=== PATIENT | male | born 1980 | race Caucasian/White ===

== ENCOUNTER 2024-04-27 10:49 | Emergency (ER) | payer OTHER, SELFPAY ==
[2024-04-27 10:50] VITALS: BP 141/101; PULSE 92; RESP 18; TEMP 37; O2SAT 99; BMI 35.2
--- NOTE | 2024-04-27 11:12 | EDS_ITS ---
HPI <MANDEEP Santos - Last Filed: 04/27/24 20:48> History of Present Illness Chief Complaint: Upper Extremity Injury Narrative Narrative: 44-year-old male states he is had pain in his left trapezius and left elbow for the last week. He was seen at another facility and told he has tennis elbow and was given a splint which he wears at work and is helping the elbow. He states his trapezius area still hurts after working all day and when lying down at night. He has tried ibuprofen without much relief. He has no pain in the shoulder joint or radiating down the arm. No weakness or paresthesias. There was no fall or direct injury. PFS <MANDEEP Santos - Last Filed: 04/27/24 20:48> [facility] Medical History unable to obtain Home Medications ?Medication ?Instructions ?Recorded ?Last Taken ?Type cyclobenzaprine 10 mg tablet 10 mg PO TID PRN Muscle S pasm #20 04/27/24 Unknown Rx TABLETS Social History Smoking Status: Current every day smoker tobacco type: cigarettes ROS <MANDEEP Santos - Last Filed: 04/27/24 20:48> ROS ED ROS Narrative CVS: Negative for chest pain chest painchest pain. Respiratory: Negative for shortness of breath. Neuro: Negative for motor/sensory dysfunction. EXAM <MANDEEP Santos Last Filed: 04/27/24 20:48> Physical Exam Narrative Exam Narrative: CONST: Patient sitting in no acute distress. EYES: Normal inspection. NECK: Normal inspection. No cervical spine tenderness or step-offs. RESP: No respiratory distress, CTAB. CVS: Regular rate and rhythm, no murmur, no gallop. Back: Normal inspection, no thoracic or lumbar tenderness. SKIN: Color normal, no rash, warm, dry, intact. EXTREMITIES: Normal appearance of both upper extremities. Tender over left trapezius. No tenderness of the shoulder joint upper arm or elbow. Mildly tender over the ligaments over the lateral elbow. No tenderness of the wrist or hand. Full range of motion of all joints. 5/5 strength in shoulder abduction, elbow and wrist flexion and extension, and grinder set up operator internal strength. Normal motor and sensory function in median radial and ulnar distributions. 2+ radial pulses. Brisk cap refill. Compartments are soft. No skin changes or rash. NEURO: Alert and answering questions appropriately. PSYCH: Normal affect. Const Vital Signs: 04/27/24 10:50 Temperature 98.6 F Temperature Source Oral Pulse Rate 92 Respiratory Rate 18 Blood Pressure 141/101 H Blood Pressure Mean 114 Pulse Ox 99 Oxygen Delivery Method Room Air [facility] <MANDEEP Santos - Last Filed: 04/27/24 20:48> [facility] Narrative Medical decision making narrative: 44-year-old male with atraumatic left arm pain. It is over the trapezius as well as the lateral elbow with extension consistent with tennis elbow. He has no midline spinal tenderness and no trauma send no indication for imaging. Exam is consistent with musculoskeletal pain. He declined Toradol or treatment here. I have prescribed cyclobenzaprine and recommended [id number] analgesia or topical Voltaren gel. He was given a note for light duty x 1 week as I suspect his job including lifting and repetitive motions is the source of his pain. He has a splint to wear on his elbow already which is helping. He was discharged in stable condition. I have personally performed a face to face assessment of the patient and have reviewed the [facility] Note. I performed a substantive portion of the visit including all aspects of the following. My aranda findings include: History is [patient presents to the emergency department with complaint of pain in his left elbow and left upper shoulder and back that has had for about a week. He was seen at [facility] and diagnosed with tendinitis of the left elbow. He states they did not really look at his back. 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 Patient feels like he needs a couple days off to let things rest. Denies fall or direct trauma or injury. Denies any pain radiating to his arms. He denies paresthesias.] Exam is [HEENT-PERRLA, EOMI. Cranial nerves II through XII grossly intact. TMs clear. Mucous membranes moist. No adenopathy. Cardiovascular-regular rate and rhythm without murmur or ectopy Lungs-clear to auscultation, chest wall stable without crepitus or subcu emphysema Abdomen-normoactive bowel sounds, soft, nontender, no rebound or rigidity, no peritoneal signs. Back exam-patient with tenderness palpation over left trapezius as well as the left thoracic paraspinal musculature that reproduces pain. He has no bony tenderness on exam of the cervical spine or thoracic spine. Deep tendon ref lexes in the upper extremities plus 2 out of 4 bilaterally at the bicep, tricep, brachioradialis. He is neurovascular intact. Extremities-intact ?4, normal range of motion, normal pulses, atraumatic] Medical Decison Making [patient presents with upper back and left shoulder pain. Atraumatic but does do a lot of repetitive motions at work. Will write him for a muscle relaxer and given work restrictions. Advised to follow-up with primary care physician within next 5 to 7 days.] Other additions or changes: [None] <Dr. Maynor Varela, DO - Last Filed: 04/27/24 14:43> [facility] MDM Narrative Medical decision making narrative: I have personally performed a face to face assessment of the patient and have reviewed the [facility] Note. I performed a substantive portion of the visit including all aspects of the following. My aranda findings include: History is [patient presents to the emergency department with complaint of pain in his left elbow and left upper shoulder and back that has had for about a week. He was seen at [facility] and diagnosed with tendinitis of the left elbow. He states they did not really look at his back. 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 Patient feels like he needs a couple days off to let things rest. Denies fall or direct trauma or injury. Denies any pain radiating to his arms. He denies paresthesias.] Exam is [HEENT-PERRLA, EOMI. Cranial nerves II through XII grossly intact. TMs clear. Mucous membranes moist. No adenopathy. Cardiovascular-regular rate and rhythm without murmur or ectopy Lungs-clear to auscultation, chest wall stable without crepitus or subcu emphysema Abdomen-normoactive bowel sounds, soft, nontender, no rebound or rigidity, no peritoneal signs. Back exam-patient with tenderness palpation over left trapezius as well as the left thoracic paraspinal musculature that reproduces pain. He has no bony tenderness on exam of the cervical spine or thoracic spine. Deep tendon reflexes in the upper extremities plus 2 out of 4 bilaterally at the bicep, tricep, brachioradialis. He is neurovascular intact. Extremities-intact ?4, normal range of motion, normal pulses, atraumatic] Medical Decison Making [patient presents with upper back and left shoulder pain. Atraumatic but does do a lot of repetitive motions at work. Will write him for a muscle relaxer and given work restrictions. Advised to follow-up with primary care physician within next 5 to 7 days.] Other additions or changes: [None] Discharge Plan Triage Chief Complaint: Upper Extremity Injury ED Midlevel Provider: Jocy Melendrez ED Provider: Maynor Varela Dx/Rx/DC Orders Clinical Impression: Lateral epicondylitis, left elbow, Musculoskeletal back pain Prescriptions: New cyclobenzaprine 10 mg tablet 10 mg PO TID PRN (Reason: Muscle Spasm) Qty: 20 0RF Primary Care Provider: Care Physician,No Primary Referrals: Jaison Smith MD [Non-Staff] - Print Language: Yi Disposition Disposition: Home, Self Care Discharge Date/Time: 04/27/24 11:58
--- NOTE | 2024-04-27 19:23 | CM.ED ---
Social Work Reason for visit: No PCP Patient verified that he does not currently have a PCP. [facility] provider list given, no further needs identified at this time. Beatris Tim, [employer] ASSOCIATE, RECEIVING SUPERVISOR
== END 2024-04-27 11:58 | disposition home or self-care (01) ==
LOC: ED 11:36
PROVIDERS: Emergency Provider Emergency Medicine; Referring Provider Emergency Medicine; Visit Provider Emergency Medicine
DX: M77.12 Lateral epicondylitis, left elbow (principal); M54.9 Dorsalgia, unspecified; F17.210 Nicotine dependence, cigarettes, uncomplicated
CPT/HCPCS: 99282